=== PATIENT | female | born 1960 | race Caucasian/White ===

== ENCOUNTER 2016-03-23 15:20 | Inpatient (IN) | payer MEDICAID ==
[~2016-03-23] VITALS: Ht 170.2 cm; Wt 66.6 kg
[~2016-03-23 15:20] MED LIST: ONDA4TAB10 PO; OXYC1TAB9 PO; SULF1TAB24 PO
[2016-03-23] MEDS ORDERED: SODIUM CHLORIDE 0.9% 1,000 ML IV ONE (16:59)
[2016-03-23] MEDS ORDERED: SODIUM CHLORIDE FLUSH 10ML SYR IVF ONE (17:00)
[2016-03-23] MEDS ORDERED: ONDANSETRON 2MG/ML, 2ML IVPush ONE (17:00)
[2016-03-23] MEDS ORDERED: ONDANSETRON 2MG/ML, 2ML ONE (17:09)
[2016-03-23] MEDS ORDERED: HYDROmorphone 1 MG/ML, 1ML ONE ×3 (17:09→20:46)
[2016-03-23] MEDS: HYDROmorphone 1 MG/ML, 1ML IVPush PRN ×2 (17:31→18:48)
[2016-03-23 18:16] LABS: BLOOD UREA NITROGEN 13 mg/dL (7-18)
[2016-03-23 18:19] LABS: ASPARTATE AMINO TRANSFERASE 10 U/L (15-37)
[2016-03-23 18:29] LABS: HEMOGLOBIN 10.6 g/dL (11.7-16.4)
[2016-03-23 18:53] LABS: ICTOTEST NEGATIVE
[2016-03-23] MEDS ORDERED: CEFTRIAXONE PMX 1GM/50ML 50 ML ONE (19:59)
[2016-03-23] MEDS ORDERED: CEFTRIAXONE PMX 1GM/50ML 50 ML IV ONE (20:00)
[2016-03-23] MEDS ORDERED: HYDROmorphone 1 MG/ML, 1ML IVPush PRN (21:00)
[2016-03-23] MEDS ORDERED: POLYETHYLENE GLYCOL 17 GM PACKET PO PRN (22:30)
[2016-03-23] MEDS ORDERED: BISACODYL 10 MG SUPP PR PRN (22:30)
[2016-03-23] MEDS ORDERED: POTASSIUM CHLORIDE 20 MEQ TAB.ER.PRT PO ONE (22:30)
[2016-03-23] MEDS ORDERED: ACETAMINOPHEN 325 MG TABLET PO PRN (22:30)
[2016-03-23] MEDS ORDERED: ONDANSETRON 2MG/ML, 2ML IVP PRN (22:30)
[2016-03-23] MEDS ORDERED: DOCUSATE 100 MG CAPSULE PO PRN (22:30)
[2016-03-23 22:43] VITALS: BP 135/69
[2016-03-24] MEDS: MORPHINE SULFATE 4 MG/ML, 1ML IVPush PRN ×6 (00:11→15:44)
[2016-03-24] MEDS: HEPARIN 5,000 UNITS/ML, 1ML SQ SCH ×3 (00:11→15:44)
[2016-03-24 02:21] VITALS: BP 110/72
[2016-03-24 05:11] LABS: HEMOGLOBIN 10.6 g/dL (11.7-16.4)
[2016-03-24 05:26] LABS: ASPARTATE AMINO TRANSFERASE 12 U/L (15-37); BLOOD UREA NITROGEN 12 mg/dL (7-18)
[2016-03-24 06:59] VITALS: BP 124/80
[2016-03-24 14:34] VITALS: BP 160/74
[2016-03-24] MEDS ORDERED: MORPHINE SULFATE 4 MG/ML, 1ML ONE (20:29)
[2016-03-24] MEDS ORDERED: FENTANYL PF 100 MCG/2ML ONE (22:51)
[2016-03-24] MEDS ORDERED: PROPOFOL 10 MG/ML, 20ML ONE (22:54)
[2016-03-24] MEDS ORDERED: ONDANSETRON 2MG/ML, 2ML ONE (22:54)
[2016-03-24] MEDS ORDERED: CEFAZOLIN 1,000 MG ONE (22:54)
[2016-03-24] MEDS ORDERED: LABETALOL 5MG/ML, 20ML IV PRN (23:30)
[2016-03-24] MEDS ORDERED: hydrALAzine 20 MG/ML, 1ML IV PRN (23:30)
[2016-03-24] MEDS ORDERED: ONDANSETRON 2MG/ML, 2ML IVPush PRN (23:30)
[2016-03-24] MEDS ORDERED: PROMETHAZINE 25 MG/ML, 1ML IV PRN (23:30)
[2016-03-24] MEDS ORDERED: OXYcodone 5 MG/5 ML ORAL.SOL UDC PO PRN (23:30)
[2016-03-25] MEDS ORDERED: HYDROmorphone 2 MG/ML, 1ML ONE (00:06)
[2016-03-25] MEDS ORDERED: OPIUM/BELLADONNA SUPP.RECT 16.2-60 MG ONE (00:06)
[2016-03-25] MEDS ORDERED: OXYcodone 5 MG/5 ML ORAL.SOL UDC ONE (00:07)
[2016-03-25] MEDS: HYDROmorphone 1 MG/ML, 1ML IV PRN ×4 (00:10→00:25)
[2016-03-25] MEDS: FENTANYL PF 100 MCG/2ML IV PRN ×3 (00:15→00:43)
[2016-03-25] MEDS ORDERED: FENTANYL PF 100 MCG/2ML ONE ×3 (00:18→14:51)
[2016-03-25] MEDS ORDERED: OPIUM/BELLADONNA SUPP.RECT 16.2-60 MG PR ONE (00:30)
[2016-03-25] MEDS ORDERED: PROMETHAZINE 25 MG/ML, 1ML ONE (00:37)
[2016-03-25] MEDS: CEFTRIAXONE PMX 1GM/50ML 50 ML IV SCH (01:49)
[2016-03-25 02:30] VITALS: BP 135/63
[2016-03-25] MEDS: MORPHINE SULFATE 4 MG/ML, 1ML IVPush PRN ×5 (05:19→22:11)
[2016-03-25 05:54] LABS: HEMOGLOBIN 10.4 g/dL (11.7-16.4)
[2016-03-25 06:03] LABS: BLOOD UREA NITROGEN 11 mg/dL (7-18)
[2016-03-25] MEDS: HEPARIN 5,000 UNITS/ML, 1ML SQ SCH ×3 (07:30→17:09)
[2016-03-25] MEDS: OXYcodone/APAP 5/325MG TABLET PO PRN (07:31)
[2016-03-25 07:40] VITALS: BP 123/65
[2016-03-25] MEDS ORDERED: LIDOCAINE 1%, 20ML ONE (10:11)
[2016-03-25] MEDS ORDERED: SODIUM BICARBONATE 4.2%, 5ML ONE (10:11)
[2016-03-25] MEDS ORDERED: VISIPAQUE 270 MG/ML, 50ML BOTTLE ONE (11:06)
[2016-03-25 13:14] VITALS: BP 117/72
[2016-03-25] MEDS ORDERED: MIDAZOLAM 1 MG/ML, 5ML ONE (14:51)
[2016-03-25] MEDS ORDERED: NALOXONE 1 MG/ML, 2ML ONE (14:51)
[2016-03-25] MEDS ORDERED: FLUMAZENIL 0.1 MG/1 ML, 5ML ONE (14:52)
[2016-03-25] MEDS ORDERED: PHARMACOKINETIC MONITORING MC PRN (15:00)
[2016-03-25] MEDS ORDERED: VANCOMYCIN PER PHARMACY MC PRN (15:00)
[2016-03-25] MEDS ORDERED: PHARMACOKINETIC CONSULTATION MC ONE (15:00)
[2016-03-25] MEDS: VANCOMYCIN 1,400 MG in SODIUM CHLORIDE 0.9% 250 ML IV SCH (17:09)
[2016-03-25] MEDS: HYDROcodone/APAP 5/325 TABLET PO PRN ×2 (18:24→23:53)
[2016-03-25 18:35] VITALS: BP 128/73
[2016-03-26 01:00] VITALS: BP 112/74
[2016-03-26] MEDS: HEPARIN 5,000 UNITS/ML, 1ML SQ SCH ×3 (02:38→16:28)
[2016-03-26] MEDS: CEFTRIAXONE PMX 1GM/50ML 50 ML IV SCH (02:38)
[2016-03-26] MEDS: MORPHINE SULFATE 4 MG/ML, 1ML IVPush PRN ×5 (03:47→20:44)
[2016-03-26 08:21] VITALS: BP 131/85
[2016-03-26] MEDS: VANCOMYCIN 1,400 MG in SODIUM CHLORIDE 0.9% 250 ML IV SCH (10:36)
[2016-03-26] MEDS: OXYcodone/APAP 5/325MG TABLET PO PRN ×2 (10:36→18:07)
[2016-03-26 13:10] VITALS: BP 136/82
[2016-03-26 18:48] VITALS: BP 120/68
[2016-03-26] MEDS: HYDROcodone/APAP 5/325 TABLET PO PRN (21:11)
[2016-03-27] MEDS: MORPHINE SULFATE 4 MG/ML, 1ML IVPush PRN ×6 (00:04→21:29)
[2016-03-27] MEDS: HEPARIN 5,000 UNITS/ML, 1ML SQ SCH ×4 (00:04→23:39)
[2016-03-27] MEDS: CEFTRIAXONE PMX 1GM/50ML 50 ML IV SCH (01:47)
[2016-03-27] MEDS: OXYcodone/APAP 5/325MG TABLET PO PRN ×3 (01:59→19:30)
[2016-03-27 02:12] VITALS: BP 128/81
[2016-03-27] MEDS: VANCOMYCIN 1,400 MG in SODIUM CHLORIDE 0.9% 250 ML IV SCH ×2 (04:18→16:30)
[2016-03-27 07:24] VITALS: BP 154/87
[2016-03-27 13:23] VITALS: BP 115/74
[2016-03-27] MEDS: HYDROcodone/APAP 5/325 TABLET PO PRN ×2 (15:22→23:39)
[2016-03-27 20:00] VITALS: BP 153/90
[2016-03-28 01:02] VITALS: BP 132/84
[2016-03-28] MEDS: MORPHINE SULFATE 4 MG/ML, 1ML IVPush PRN ×4 (04:59→19:52)
[2016-03-28] MEDS: OXYcodone/APAP 5/325MG TABLET PO PRN ×2 (06:26→21:16)
[2016-03-28 07:11] VITALS: BP 142/85
[2016-03-28] MEDS: HEPARIN 5,000 UNITS/ML, 1ML SQ SCH ×2 (08:38→17:52)
[2016-03-28] MEDS: VANCOMYCIN 1,400 MG in SODIUM CHLORIDE 0.9% 250 ML IV SCH (12:15)
[2016-03-28 13:58] VITALS: BP 136/92
[2016-03-28] MEDS: HYDROcodone/APAP 5/325 TABLET PO PRN (14:42)
[2016-03-28 19:16] VITALS: BP 129/87
[2016-03-29] MEDS: HEPARIN 5,000 UNITS/ML, 1ML SQ SCH ×4 (00:24→23:48)
[2016-03-29] MEDS: MORPHINE SULFATE 4 MG/ML, 1ML IVPush PRN ×5 (00:24→22:19)
[2016-03-29 03:01] VITALS: BP 154/89
[2016-03-29] MEDS: OXYcodone/APAP 5/325MG TABLET PO PRN ×3 (03:23→20:53)
[2016-03-29] MEDS: VANCOMYCIN 1,400 MG in SODIUM CHLORIDE 0.9% 250 ML IV SCH ×2 (06:23→22:19)
[2016-03-29] MEDS: HYDROcodone/APAP 5/325 TABLET PO PRN (06:23)
[2016-03-29 07:04] VITALS: BP 124/78
[2016-03-29 13:41] VITALS: BP 152/80
[2016-03-29 20:00] VITALS: BP 145/87
[2016-03-29] MEDS: TRAZODONE 50MG TABLET PO PRN (23:48)
[2016-03-30] MEDS: MORPHINE SULFATE 4 MG/ML, 1ML IVPush PRN ×4 (01:37→19:43)
[2016-03-30 01:40] VITALS: BP 123/73
[2016-03-30] MEDS: OXYcodone/APAP 5/325MG TABLET PO PRN ×2 (05:18→17:40)
[2016-03-30 07:04] VITALS: BP 156/83
[2016-03-30] MEDS: HEPARIN 5,000 UNITS/ML, 1ML SQ SCH ×3 (07:44→22:44)
[2016-03-30] MEDS: HYDROcodone/APAP 5/325 TABLET PO PRN ×2 (10:01→22:44)
[2016-03-30 12:34] VITALS: BP 131/84
[2016-03-30] MEDS: VANCOMYCIN 1,400 MG in SODIUM CHLORIDE 0.9% 250 ML IV SCH (15:06)
[2016-03-30] MEDS ORDERED: morphine SULFATE 10 MG/ML, 1ML ONE (19:40)
[2016-03-30 19:48] VITALS: BP 133/87
[2016-03-30] MEDS: TRAZODONE 50MG TABLET PO PRN (22:44)
[2016-03-31 02:04] VITALS: BP 126/77
[2016-03-31] MEDS: MORPHINE SULFATE 4 MG/ML, 1ML IVPush PRN ×5 (02:13→20:13)
[2016-03-31] MEDS: OXYcodone/APAP 5/325MG TABLET PO PRN ×2 (04:38→21:30)
[2016-03-31 07:05] VITALS: BP 123/80
[2016-03-31] MEDS: HEPARIN 5,000 UNITS/ML, 1ML SQ SCH ×3 (08:23→23:34)
[2016-03-31] MEDS: FLUCONAZOLE 200 MG TABLET PO SCH (09:52)
[2016-03-31] MEDS: VANCOMYCIN 1,400 MG in SODIUM CHLORIDE 0.9% 250 ML IV SCH (10:31)
[2016-03-31] MEDS: HYDROcodone/APAP 5/325 TABLET PO PRN (13:05)
[2016-03-31 13:15] VITALS: BP 156/98
[2016-03-31 18:04] LABS: PATH.CAST-FLAG NOT PRESENT; SPERM-FLAG NOT PRESENT; SRC-FLAG NOT PRESENT; XTAL-FLAG NOT PRESENT; YLC-FLAG NOT PRESENT
[2016-03-31 20:00] VITALS: BP 171/94
[2016-03-31] MEDS: TRAZODONE 50MG TABLET PO PRN (23:34)
[2016-04-01 02:00] VITALS: BP 148/81
[2016-04-01] MEDS: VANCOMYCIN 1,400 MG in SODIUM CHLORIDE 0.9% 250 ML IV SCH ×2 (03:22→22:10)
[2016-04-01] MEDS: MORPHINE SULFATE 4 MG/ML, 1ML IVPush PRN ×5 (03:22→19:55)
[2016-04-01] MEDS: OXYcodone/APAP 5/325MG TABLET PO PRN ×3 (06:04→22:10)
[2016-04-01 07:15] VITALS: BP 115/74
[2016-04-01] MEDS: FLUCONAZOLE 200 MG TABLET PO SCH (08:32)
[2016-04-01] MEDS: HEPARIN 5,000 UNITS/ML, 1ML SQ SCH ×2 (08:32→16:18)
[2016-04-01] MEDS ORDERED: morphine SULFATE 10 MG/ML, 1ML ONE (11:44)
[2016-04-01 12:50] VITALS: BP 129/80
[2016-04-01 20:00] VITALS: BP 145/84
[2016-04-02] MEDS: HEPARIN 5,000 UNITS/ML, 1ML SQ SCH ×2 (00:23→08:00)
[2016-04-02] MEDS: MORPHINE SULFATE 4 MG/ML, 1ML IVPush PRN ×2 (00:24→04:21)
[2016-04-02 02:00] VITALS: BP 142/87
[2016-04-02] MEDS: OXYcodone/APAP 5/325MG TABLET PO PRN ×2 (05:31→11:45)
[2016-04-02 07:45] VITALS: BP 147/83
[2016-04-02] MEDS ORDERED: NITR100C56 PO (07:54)
[2016-04-02] MEDS ORDERED: OXYC-229 PO (07:54)
[2016-04-02 09:06] LABS: CA OXALATE MONOHYDRATE 10 % (.); URINARY CALCULI COLOR Tan (.)
[2016-04-02] MEDS: FLUCONAZOLE 200 MG TABLET PO SCH (09:11)
== END 2016-04-02 12:10 | disposition home or self-care (01) | DRG 699 ==
LOC: ED 16:19 → EDIP 20:39 → 4EST 22:36
PROVIDERS: ADMIT Internal Medicine
PROC: 0T9B70Z Drainage of Bladder with Drainage Device, Via Natural or Artificial Opening (ICD-10-PCS; principal; 2016-03-23)
PROC: BT111ZZ Fluoroscopy of Right Kidney using Low Osmolar Contrast (ICD-10-PCS; 2016-03-25)
PROC: 0TP98DZ Removal of Intraluminal Device from Ureter, Via Natural or Artificial Opening Endoscopic (ICD-10-PCS; 2016-03-25)
PROC: 0TCB8ZZ Extirpation of Matter from Bladder, Via Natural or Artificial Opening Endoscopic (ICD-10-PCS; 2016-03-25)
PROC: 0TP5X0Z Removal of Drainage Device from Kidney, External Approach (ICD-10-PCS; 2016-03-25)
PROC: 02HV33Z Insertion of Infusion Device into Superior Vena Cava, Percutaneous Approach (ICD-10-PCS; 2016-03-29)
PROC: B5181ZA Fluoroscopy of Superior Vena Cava using Low Osmolar Contrast, Guidance (ICD-10-PCS; 2016-03-29)
DX: T83.098A Other mechanical complication of other urinary catheter, initial encounter (principal); B37.49 Other urogenital candidiasis; T83.192A Other mechanical complication of indwelling ureteral stent, initial encounter; N39.0 Urinary tract infection, site not specified; N13.30 Unspecified hydronephrosis; D64.9 Anemia, unspecified; E87.6 Hypokalemia; B95.62 Methicillin resistant Staphylococcus aureus infection as the cause of diseases classified elsewhere; E87.5 Hyperkalemia; Z88.0 Allergy status to penicillin; Z85.42 Personal history of malignant neoplasm of other parts of uterus; V89.2XXA Person injured in unspecified motor-vehicle accident, traffic, initial encounter; Z90.49 Acquired absence of other specified parts of digestive tract; Z80.7 Family history of other malignant neoplasms of lymphoid, hematopoietic and related tissues; Z93.6 Other artificial openings of urinary tract status; N21.0 Calculus in bladder; Z85.43 Personal history of malignant neoplasm of ovary
CPT/HCPCS: 36415; 36569; 50431; 71010; 74176; 74425; 76770; 76937; 77001; 80048; 80053; 80061; 80202; 81001; 81003; 82360; 83690; 83735; 84100; 85025; 85610; 87040; 87077; 87086; 87106; 87186; 88300; 93306; 96361; 96365; 96375; 96376; J0690; J0696; J1170; J1644; J2250; J2405; J2550; J2704; J3010; J3370; J3490; Q9966; C1751; C1769; J2310; J7050